=== PATIENT | male | born 1990 ===

== ENCOUNTER 2021-04-10 12:28 | Emergency (ER) | payer MEDICAID, BC ==
[~2021-04-10] VITALS: Ht 170.2 cm; Wt 77.1 kg
[2021-04-10 15:10] VITALS: BP 158/93
[2021-04-10] MEDS ORDERED: IBUPROFEN 800 MG TAB PO ONE (15:15)
== END 2021-04-10 15:50 | disposition home or self-care (01) ==
LOC: ER 12:28
DX: S62.314A Displaced fracture of base of fourth metacarpal bone, right hand, initial encounter for closed fracture (principal); S62.316A Displaced fracture of base of fifth metacarpal bone, right hand, initial encounter for closed fracture; W22.8XXA Striking against or struck by other objects, initial encounter; Y93.89 Activity, other specified; Y92.89 Other specified places as the place of occurrence of the external cause; Y99.8 Other external cause status
CPT/HCPCS: 26605; 73120; 73130

== ENCOUNTER 2021-04-20 16:42 | Emergency (ER) | payer BC, MEDICAID ==
[~2021-04-20] VITALS: Ht 170.2 cm; Wt 77.1 kg
[2021-04-20 18:50] VITALS: BP 137/88
== END 2021-04-20 20:26 | disposition home or self-care (01) ==
LOC: ER 16:42
DX: S62.304A Unspecified fracture of fourth metacarpal bone, right hand, initial encounter for closed fracture (principal); S62.306A Unspecified fracture of fifth metacarpal bone, right hand, initial encounter for closed fracture; X58.XXXA Exposure to other specified factors, initial encounter; Y93.89 Activity, other specified; Y92.89 Other specified places as the place of occurrence of the external cause; Y99.8 Other external cause status
CPT/HCPCS: 29125; 73130